=== PATIENT | female | born 1950 | race Caucasian/White ===

== ENCOUNTER 2019-07-05 23:50 | Emergency (ER) | payer SELFPAY ==
[2019-07-06] MEDS ORDERED: Acetaminophen 325 MG Tab PO ONE (00:29)
[2019-07-06] MEDS ORDERED: Levofloxacin/Dextrose 5%-Water 750 MG in Premix Bag 1 BAG IV ONE (00:30)
--- NOTE | 2019-07-06 00:33 | CR ---
Indication: Cough Technique: Chest 1 view Comparison: None Findings/Impression: Cardiovascular and mediastinum: Heart size and vasculature are normal in caliber and appearance. Mediastinum is within normal limits. Lungs and pleural space: Mildly increased interstitial markings, of unclear chronicity. Correlate clinically to exclude an active interstitial process. No lobar consolidation or pleural effusions. An ovoid left paraspinal medial retrocardiac opacity may represent a hiatal hernia. Recommend follow-up. Bones and soft tissues: No significant findings. Dictated by Tyler Matias MD @ 07/06/2019 12:31:51 AM Dictated by: Tyler Matias MD @ 07/06/2019 00:31:55 (Electronically Signed)
[2019-07-06 00:45] LABS: CARBON DIOXIDE,CO2 20.8 mmol/L (21.0-32.0); POTASSIUM,K 4.2 mmol/L (3.5-5.1)
[2019-07-06] MEDS ORDERED: Sodium Chloride 0.9% 1,000 ML IV ONE ×2 (00:49→01:17)
[2019-07-06] MEDS ORDERED: Oseltamivir 75 MG Cap PO ONE (01:02)
--- NOTE | 2019-07-06 01:41 | EDM.PDOC ---
ED HPI GENERAL MEDICAL PROBLEM - General Chief Complaint: Respiratory Problem Stated Complaint: SICK Time Seen by Provider: 07/06/19 00:03 Source of Information: Reports: Patient History Limitations: Reports: No Limitations - History of Present Illness INITIAL COMMENTS - FREE TEXT/NARRATIVE: HISTORY OF PRESENT ILLNESS: Patient is a 68-year-old female presents to the ER via EMS for evaluation of cough and fall. Patient slid off her bed while attempting to go to the bathroom today and laid on the floor. She denies sustaining any injury but family members were unable to lift her up to put her back into the bed due to generalized weakness. She denies any head trauma or loss of consciousness. No neck or back pain. No chest pain, dyspnea or abdominal pain. No extremity pain. Denies any weakness or paresthesias. Patient does admit to a cough for the past 2 to 3 days productive of white sputum. Has had decreased p.o. intake over the past 2 days due to her cough. Denies any hemoptysis. Patient denies any fever at home. Is admit to smoking half a pack per day. Denies any history of COPD. She is not on any home oxygen REVIEW OF SYSTEMS: Other than the symptoms associated with the present events, the following is reported with regard to recent health: General: (-) fever. HENT: (-) congestion. Respiratory: (+) cough. Cardiovascular: (-) chest pain. GI: (-) abdominal pain. : (-) urinary complaints. Musculoskeletal: (-) other aches or pains. Endocrine: (+) generalized weakness. Neurological: (-) localized weakness. Skin: (-) rash PAST MEDICAL HISTORY: reviewed as per nursing notes SOCIAL HISTORY: reviewed as per nursing notes, MEDICATIONS: Per nurse's note ALLERGIES: Per nurse's note, reviewed by me PHYSICAL EXAMINATION: GENERALIZED APPEARANCE: well developed, well nourished in mild respiratory distress VITAL SIGNS: Per nurse's note, reviewed by me SKIN: Warm, dry; (-) cyanosis; (-) rash. HEAD: (-) scalp swelling, (-) tenderness. EYES: (-) conjunctival pallor, (-) scleral icterus. ENMT: (-) stridor; mucous membranes moist. NECK: (-) tenderness, (-) stiffness, no tenderness, step off or deformity BACK: no TLS tenderness, step off or deformity. CHEST AND RESPIRATORY: tachypneic (-) rales, (-) rhonchi, (-) wheezes; breath sounds equal bilaterally. HEART AND CARDIOVASCULAR: (-) irregularity; (-) murmur, (-) gallop. ABDOMEN AND GI: Soft; (-) tenderness, (-) guarding, (-) rebound, (-) palpable masses, EXTREMITIES: (-) deformity, (+)trace edema. NEURO AND PSYCH: Alert. Cranial nerves grossly intact; strength symmetric. gait steady DIAGNOSTICS: EKG: st at 123 bpm. nml axis. nml intervals. no st elevation or depression CXR: mildly increased interstitial markings as read by radiologist CBC, CMP, Troponin, Lactic acid ordered and reviewed Blood cultures x 2 drawn. EMERGENCY DEPARTMENT COURSE AND TREATMENT: Patient's condition improved during Emergency Department evaluation. Patient seen immediately on arrival because of high probability of imminent or life threatening deterioration in patient's condition. Initial assessment, history, and exam done. Information taken from transport personnel. Orders written. Treated with oxygen 4L with pulse ox from 87% to 92%. Blood cultures x 2 drawn. Given Levaquin after cultures. Influenza positive, Tamiflu added. IVF ordered after CXR reviewed for any signs of CHF. Observed at bedside for initial response to treatment. Troponin noted to be elevated. EKG negative for ST elevation. Pt is allergic to ASA, therefore it was not given at this time. Case discussed with Dr. Pedro at [facility] who kindly agrees to accept transfer. Discussion had with family regarding necessity for transfer. Patient re-evaluated and observed at bedside for subsequent response to continuing treatment multiple times. Lab tests reviewed. X-Rays reviewed. Computer monitor checked for vital sign trends and cardiac rhythm. Records and documentation completed. Total critical care time 31 minutes exclusive of minutes for separately reportable procedures. IMPRESSION: 1. ELEVATED TROPONIN R/O NSTEMI 2. PNEUMONIA 3. INFLUENZA 4. SEPSIS PLAN AND FOLLOW-UP: transfer to [facility] - Related Data Allergies Allergy/AdvReac Type Severity Reaction Status Date / Time aspirin Allergy Tachycardia Verified 07/06/19 00:04 codeine Allergy Hives Verified 07/06/19 00:04 Penicillins Allergy Hives Verified 07/06/19 00:04 Sulfa (Sulfonamide Allergy Hives Verified 07/06/19 00:04 Antibiotics) Home Meds: Home Meds . 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 Musculoskeletal History: L wrist sx Neurological History: Reports: None Psychiatric History: Reports: None Endocrine/Metabolic History: Reports: None Hematologic History: Reports: None Immunologic History: Reports: None Oncologic (Cancer) History: Reports: None Dermatologic History: Reports: None - Infectious Disease History Infectious Disease History: Reports: None - Past Surgical History Head Surgeries/Procedures: Reports: None Female Surgical History: Reports: Section Social & Family History - Tobacco Use Smoking Status *Q: Current Every Day Smoker Years of Tobacco use: 53 Packs/Tins Daily: 0.5 - Recreational Drug Use Recreational Drug Use: No ED ROS GENERAL - Review of Systems Review Of Systems: See Below (see dictation) ED EXAM, GENERAL - Physical Exam Exam: See Below (see dictation) Course - Vital Signs Last Recorded V/S: Last Vital Signs Temp 102.9 F H 07/06/19 00:48 Pulse 111 H 07/06/19 01:40 Resp 18 07/06/19 01:40 BP 92/56 L 07/06/19 01:40 Pulse Ox 93 L 07/06/19 01:40 - Orders/Labs/Meds Orders: Active Orders 24 hr Category Date Time Status EKG Documentation Completion [RC] STAT Care 07/06/19 00:04 Active CULTURE BLOOD [BC] Stat Lab 07/06/19 00:00 Results CULTURE BLOOD [BC] Stat Lab 07/06/19 00:50 Received UA RFX BAYRON AND CULT IF INDIC [URIN] Stat Lab 07/06/19 00:04 Ordered Sodium Chloride 0.9% [Normal Saline] 1,000 ml Med 07/06/19 01:17 Active IV .BOLUS Blood Culture x2 Reflex Set [OM.PC] Stat Oth 07/06/19 00:04 Ordered Medication Orders Sodium Chloride (Normal Saline) 1,000 mls @ 999 mls/hr IV .BOLUS ONE Stop: 07/06/19 02:17 Last Admin: 07/06/19 01:19 Dose: 999 mls/hr Labs: Laboratory Tests 07/06/19 07/06/1920 Range/Units 00:00 00:00 00:00 WBC 14.38 H (4.0-11.0) K/uL RBC 4.89 (4.30-5.90) M/uL Hgb 16.2 H (12.0-16.0) g/dL Hct 47.0 H (36.0-46.0) % MCV 96.1 (80.0-98.0) fL MCH 33.1 H (27.0-32.0) pg MCHC 34.5 (31.0-37.0) g/dL RDW Std Deviation 49.0 (28.0-62.0) fl RDW Coeff of Best 14 (11.0-15.0) % Plt Count 192 (150-400) K/uL MPV 11.00 (7.40-12.00) fL Neut % (Auto) 85.9 H (48.0-80.0) % Lymph % (Auto) 4.3 L (16.0-40.0) % Richardson % (Auto) 9.7 (0.0-15.0) % Eos % (Auto) 0.0 (0.0-7.0) % Baso % (Auto) 0.1 (0.0-1.5) % Neut # (Auto) 12.4 H (1.4-5.7) K/uL Lymph # (Auto) 0.6 (0.6-2.4) K/uL Richardson # (Auto) 1.4 H (0.0-0.8) K/uL Eos # (Auto) 0.0 (0.0-0.7) K/uL Baso # (Auto) 0.0 (0.0-0.1) K/uL Nucleated RBC % 0.0 /100WBC Nucleated RBCs # 0 K/uL Lactate 2.9 H* (0.20-2.00) mmol/L Sodium 131 L (136-145) mmol/L Potassium 4.2 (3.5-5.1) mmol/L Chloride 97 L (98-107) mmol/L Carbon Dioxide 20.8 L (21.0-32.0) mmol/L BUN 23 H (7.0-18.0) mg/dL Creatinine 1.7 H (0.6-1.0) mg/dL Est Cr Clr Drug Dosing 24.70 mL/min Estimated GFR (MDRD) 29.8 ml/min Glucose 155 H (74-106) mg/dL POC Glucose (60-110) mg/dL Calcium 9.3 (8.5-10.1) mg/dL Total Bilirubin 0.5 (0.2-1.0) mg/dL AST 62 H (15-37) IU/L ALT 53 (14-63) IU/L Alkaline Phosphatase 127 H (46-116) U/L Troponin I 0.080 H* (0.000-0.056) ng/mL B-Natriuretic Peptide (<100) PG/ML Total Protein 8.7 H (6.4-8.2) g/dL Albumin 3.8 (3.4-5.0) g/dL Globulin 4.9 H (2.6-4.0) g/dL Albumin/Globulin Ratio 0.8 L (0.9-1.6) 07/06/19 07/06/19 Range/Units 00:00 00:23 WBC (4.0-11.0) K/uL RBC (4.30-5.90) M/uL Hgb (12.0-16.0) g/dL Hct (36.0-46.0) % MCV (80.0-98.0) fL MCH (27.0-32.0) pg MCHC (31.0-37.0) g/dL RDW Std Deviation (28.0-62.0) fl RDW Coeff of Best (11.0-15.0) % Plt Count (150-400) K/uL MPV (7.40-12.00) fL Neut % (Auto) (48.0-80.0) % Lymph % (Auto) (16.0-40.0) % Richardson % (Auto) (0.0-15.0) % Eos % (Auto) (0.0-7.0) % Baso % (Auto) (0.0-1.5) % Neut # (Auto) (1.4-5.7) K/uL Lymph # (Auto) (0.6-2.4) K/uL Richardson # (Auto) (0.0-0.8) K/uL Eos # (Auto) (0.0-0.7) K/uL Baso # (Auto) (0.0-0.1) K/uL Nucleated RBC % /100WBC Nucleated RBCs # K/uL Lactate (0.20-2.00) mmol/L Sodium (136-145) mmol/L Potassium (3.5-5.1) mmol/L Chloride (98-107) mmol/L Carbon Dioxide (21.0-32.0) mmol/L BUN (7.0-18.0) mg/dL Creatinine (0.6-1.0) mg/dL Est Cr Clr Drug Dosing mL/min Estimated GFR (MDRD) ml/min Glucose (74-106) mg/dL POC Glucose 139 H (60-110) mg/dL Calcium (8.5-10.1) mg/dL Total Bilirubin (0.2-1.0) mg/dL AST (15-37) IU/L ALT (14-63) IU/L Alkaline Phosphatase (46-116) U/L Troponin I (0.000-0.056) ng/mL B-Natriuretic Peptide 27 (<100) PG/ML Total Protein (6.4-8.2) g/dL Albumin (3.4-5.0) g/dL Globulin (2.6-4.0) g/dL Albumin/Globulin Ratio (0.9-1.6) Meds: Medications Generic Name Dose Route Start Last Admin Trade Name Freq PRN Reason Stop Dose Admin Sodium Chloride 1,000 mls @ 999 mls/hr 07/06/19 01:17 07/06/19 01:19 Normal Saline IV 07/06/19 02:17 999 mls/hr .BOLUS ONE Administration Discontinued Medications Generic Name Dose Route Start Last Admin Trade Name Freq PRN Reason Stop Dose Admin Acetaminophen 650 mg 07/06/19 00:29 07/06/19 00:48 Tylenol PO 07/06/19 00:30 650 mg NOW ONE Administration Levofloxacin/Dextrose 750 mg/ 150 mls @ 100 mls/hr 07/06/19 00:30 07/06/19 00 :49 Premix IV 07/06/19 01:59 100 mls/hr ONETIME ONE Administration Sodium Chloride 1,000 mls @ 999 mls/hr 07/06/19 00:49 07/06/19 00:53 Normal Saline IV 07/06/19 01:49 999 mls/hr .BOLUS ONE Administration Oseltamivir Phosphate 75 mg 07/06/19 01:02 07/06/19 01:06 Tamiflu PO 07/06/19 01:03 75 mg ONETIME ONE Administration Departure - Departure Time of Disposition: 01:42 Disposition: DC/Tfer to Acute Hospital 02 Condition: Fair Clinical Impression: Pneumonia, Influenza, Sepsis, Elevated troponin - Discharge Information Referrals: PCP,None [Primary Care Provider] - Forms: ED Department Discharge Sepsis Event Note - Evaluation Sepsis Screening Result: No Definite Risk - Focused Exam Vital Signs: Vital Signs Temp Temp Pulse Resp BP Pulse Ox 07/06/19 01:40 111 H 18 92/56 L 93 L 07/06/19 00:48 102.9 F H 07/05/19 23:59 99.1 F 129 H 21 H 101/58 L 87 L Date Exam was Performed: 07/06/19 Time Exam was Performed: 02:08 - My Orders Last 24 Hours: My Active Orders 07/06/19 00:00 CULTURE BLOOD [BC] Stat 07/06/19 00:04 EKG Documentation Completion [RC] STAT UA RFX BAYRON AND CULT IF INDIC [URIN] Stat Blood Culture x2 Reflex Set [OM.PC] Stat 07/06/19 00:50 CULTURE BLOOD [BC] Stat 07/06/19 01:17 Sodium Chloride 0.9% [Normal Saline] 1,000 ml IV .BOLUS - Assessment/Plan Last 24 Hours: My Active Orders 07/06/19 00:00 CULTURE BLOOD [BC] Stat 07/06/19 00:04 EKG Documentation Completion [RC] STAT UA RFX BAYRON AND CULT IF INDIC [URIN] Stat Blood Culture x2 Reflex Set [OM.PC] Stat 07/06/19 00:50 CULTURE BLOOD [BC] Stat 07/06/19 01:17 Sodium Chloride 0.9% [Normal Saline] 1,000 ml IV .BOLUS
== END 2019-07-06 00:27 ==
LOC: MW.ED 23:50
DX: A41.9 Sepsis, unspecified organism (principal); J11.00 Influenza due to unidentified influenza virus with unspecified type of pneumonia; R79.89 Other specified abnormal findings of blood chemistry
CPT/HCPCS: 36415; 71045; 80053; 82962; 83605; 83880; 84484; 85025; 87040; 87186; 87804; 93005; 96365; 96366; 99285; A9270; J1956; J7030; 87077; 99291